=== PATIENT | female | born 1995 | race Caucasian/White ===

== ENCOUNTER 2017-07-26 13:28 | Outpatient (CLI) | payer OTHER | END 2017-07-26 13:33 | disposition home or self-care (01) | LOC: SONOGRAMA 13:28 | DX: E04.8 Other specified nontoxic goiter (principal) ==

== ENCOUNTER 2019-05-04 13:33 | Outpatient (CLI) | payer OTHER | END 2019-05-04 13:35 | disposition home or self-care (01) | LOC: SONOGRAMA 13:33 | DX: E04.1 Nontoxic single thyroid nodule (principal) ==